=== PATIENT | female | born 1995 | race Caucasian/White ===

== ENCOUNTER 2023-03-14 02:46 | Emergency (ER) | payer OTHER, MEDICAID, SELFPAY ==
[2023-03-14 02:50] VITALS: BP 118/76; PULSE 102; RESP 18; TEMP 36.3; O2SAT 100; BMI 32.3
--- NOTE | 2023-03-14 02:56 | ED.SKABFB ---
HPI - Skin/Abscess/Foreign Bdy General Chief complaint: Skin/Abscess/Foreign Body Stated complaint: infection rt foot middle toe Time Seen by Provider: 03/14/23 02:49 Source: patient Mode of arrival: Ambulatory Limitations: no limitations History of Present Illness HPI narrative: Patient is a 27-year-old female who is here for evaluation of pain and potential infection of the 3rd toe on the right foot. She states she thinks that maybe she cut the toenail back too far and then put a glue on nail over the area. She is had quite a bit of pain in the areas since then now has a white area around the toe. It is difficult for her to walk. Related Data Previous Rx's Medication Instructions Recorded cephalexin 500 mg capsule 500 mg PO QID 7 days #28 caps 03/14/23 Review of Systems Constitutional Constitutional: Reports system reviewed and no additional complaints, except as documented Musculoskeletal Musculoskeletal: Reports system reviewed and no additional complaints, except as documented Integumentary/Breasts Skin/Breast: Reports system reviewed and no additional complaints, except as documented Neurologic Neurologic: Reports system reviewed and no additional complaints, except as documented Exam Skin Other: Patient does have an area of white purulent material along the lateral aspect of the toenail of the 3rd toe of the right foot. There is some redness surrounding this as well. Extrem Other: Physical exam is consistent with a paronychia. Low suspicion for felon based on exam. Procedures Abscess I/D I&D #1: Site: foot Side (if applicable): right Technique: incised with #11 blade Irrigation: No Packing used?: none Course Orders Ordered: Discontinued Medications Cephalexin HCl (Cephalexin 250 Mg Capsule) 500 mg PO NOW ONE Stop: 03/14/23 02:55 Last Admin: 03/14/23 02:58 Dose: 500 mg MDM - Skin/Abscess/Foreign Bdy MDM Narrative Medical decision making narrative: History and physical exam was consistent with a paronychia. Low suspicion for felon there was no trauma. Low suspicion for fracture. No indication for imaging. The. Neck it was drained with return of purulent material. Given the surrounding erythema will treat antibiotics. First dose given here in the emergency department. Prescription was sent to the pharmacy of choice. They were given care instructions and return precautions. They expressed understanding and agreement. Discharge Plan Departure Patient Disposition: Home Clinical Impression: Paronychia Activity Restrictions/Additional Instructions: I would expect some drainage from the area over the next couple days but your symptoms should improve. Take the antibiotics as directed. Return to the emergency department for new or worsening symptoms. Prescriptions: New cephalexin 500 mg capsule 500 mg PO QID 7 Days Qty: 28 0RF Stand Alone Forms: Patient Portal/API
[2023-03-14] MEDS: cephALEXin 250 MG CAPSULE 500 MG PO (02:58)
== END 2023-03-14 03:02 | disposition home or self-care (01) ==
PROVIDERS: Emergency Provider Emergency Medicine
DX: L03.031 Cellulitis of right toe (principal)
CPT/HCPCS: 10060; 99283

== ENCOUNTER 2023-06-28 03:20 | Emergency (ER) | payer OTHER, MEDICAID, SELFPAY ==
[2023-06-28 03:25] VITALS: BP 122/88; PULSE 98; RESP 17; TEMP 37.3; O2SAT 100; BMI 35.5
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
[2023-06-28 03:44] LABS: Add Manual Diff / Slide Review NO; Basophils Absolute Auto 100 /uL (0-100); Basophils Percent Auto 0.4 % (0-2); Eosinophils Absolute Auto 0 /uL (0-450); Eosinophils Percent Auto 0.2 % (2-4); Hematocrit 40.5 % (36-46); Hemoglobin 13.5 g/dL (12.0-16.0); Lymphocytes Absolute Auto 2000 /uL (1100-4500); Lymphocytes Percent Auto 13.7 % (25-40); Mean Corpuscular HGB Conc 33.4 % (30-36); Mean Corpuscular Hemoglobin 28.6 PG (26-34); Mean Corpuscular Volume 85.6 fL (80-100); Monocytes Absolute Auto 500 /uL (0-900); Monocytes Percent Auto 3.8 % (3-14); Neutrophils Absolute Auto 11800 /uL (1500-7000); Neutrophils Percent Auto 81.9 % (50-75); Platelet Count 345 X10^3/uL (150-400); Red Blood Cell Count 4.73 X10^6/uL (4.0-5.2); Red Cell Distribution Width 13.7 % (11.6-14.8); White Blood Cell Count 14.4 X10^3/uL (4.5-11.0)
[2023-06-28] MEDS: OXYCODONE/ACETAMINOPHEN 5/325 TABLET 2 TAB PO (03:45)
[2023-06-28 03:55] LABS: Alanine Aminotransferase 20 IU/L (<35); Albumin 4.5 g/dL (3.5-5.0); Albumin Globulin Ratio 1.3 (1.0-2.8); Alkaline Phosphatase 66 U/L (38-126); Aspartate Aminotransferase 26 IU/L (14-36); Bilirubin Total 0.5 mg/dL (0.2-1.3); Blood Urea Nitrogen 14 mg/dL (7-17); Calcium 9.5 mg/dL (8.4-10.2); Carbon Dioxide 26 mmol/L (22-32); Chloride 105 mmol/L (98-107); Estimated Glomerular Filt Rate > 60 mL/min (>60); Globulin 3.6 g/dL (1.7-4.1); Glucose 112 mg/dL (70-100); HEMOLYSIS < 15 (0-50); Potassium 3.4 mmol/L (3.4-5.1); Sodium 140 mmol/L (137-145); Total Protein 8.1 g/dL (6.3-8.2)
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
[2023-06-28 07:06] VITALS: BP 119/68; PULSE 98; RESP 17; O2SAT 99
== END 2023-06-28 07:10 | disposition home or self-care (01) ==
PROVIDERS: Emergency Provider Emergency Medicine
DX: S00.83XA Contusion of other part of head, initial encounter (principal); S19.9XXA Unspecified injury of neck, initial encounter; R13.10 Dysphagia, unspecified; S00.211A Abrasion of right eyelid and periocular area, initial encounter; S80.211A Abrasion, right knee, initial encounter; Y04.2XXA Assault by strike against or bumped into by another person, initial encounter
CPT/HCPCS: 36415; 70450; 70486; 70498; 73140; 80053; 81025; 85025; 99283; 99284; Q9967

== ENCOUNTER 2023-08-07 01:47 | Emergency (ER) | payer OTHER, MEDICAID, SELFPAY ==
[2023-08-07 01:58] VITALS: BP 112/61; PULSE 128; RESP 20; TEMP 36.8; O2SAT 97; BMI 35.2
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
[2023-08-07 03:00] LABS: Influenza A - CEPHEID Flu A NEGATIVE (NEGATIVE); Influenza B - CEPHEID Flu B NEGATIVE (NEGATIVE); Respiratory Syncytial Virus Negative (Negative)
[2023-08-07 03:01] LABS: COVID-19 CEPHEID 4-PLEX PCR Negative (Negative)
[2023-08-07 03:24] VITALS: BP 112/66; PULSE 102; RESP 18; TEMP 36.5; O2SAT 97
== END 2023-08-07 03:29 | disposition home or self-care (01) ==
PROVIDERS: Emergency Provider Emergency Medicine
DX: J06.9 Acute upper respiratory infection, unspecified (principal); Z20.822 Contact with and (suspected) exposure to COVID-19
CPT/HCPCS: 0241U; 99281; 99282

== ENCOUNTER 2024-01-17 19:17 | Emergency (ER) | payer OTHER, MEDICAID, SELFPAY ==
[2024-01-17 19:49] VITALS: BP 112/67; PULSE 96; RESP 17; TEMP 36.2; O2SAT 100; BMI 31.3
--- NOTE | 2024-01-17 19:53 | DI.RAD.S_ITS ---
PROCEDURE: XR SHOULDER LT MIN 2V INDICATIONS: pain TECHNIQUE: 3 views of the shoulder were acquired. COMPARISON: None. FINDINGS: Bones: No fractures or dislocations. No suspicious bony lesions. Visualized ribs appear intact. Soft tissues: No suspicious soft tissue calcifications. IMPRESSION: No acute bony abnormality. Approved by: April Mcqueen M.D.,Ph.D. on 01/17/2024 at 20:59
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
[2024-01-17] MEDS: HYDROCODONE/ACET 5/325 PREPACK 1 BOTTLE MISC (23:42)
== END 2024-01-17 23:44 | disposition home or self-care (01) ==
PROVIDERS: Emergency Provider Emergency Medicine
DX: S43.402A Unspecified sprain of left shoulder joint, initial encounter (principal); X58.XXXA Exposure to other specified factors, initial encounter
CPT/HCPCS: 73030; 99283